=== PATIENT | male | born 1965 | race Caucasian/White ===

== ENCOUNTER 2018-01-07 23:18 | Emergency (ER) | payer BC, OTHER ==
[2018-01-08] MEDS ORDERED: HYDROMORPHONE HCL INJ/PF 2 MG/ML AMPULE IM ONE (00:45)
[2018-01-08] MEDS ORDERED: KETOROLAC TROMETHAMINE 60 MG/2 ML SDV IM ONE (00:45)
[2018-01-08] MEDS ORDERED: ACETAMINOPHEN 325 MG TABLET PO ONE (00:45)
[2018-01-08] MEDS ORDERED: LIDOCAINE 5% (700 MG) TRANSDERMAL ADH..PATCH TP ONE (00:45)
--- NOTE | 2018-01-08 00:46 | ER Document Report ---
ED General - General Chief Complaint: Back Pain Stated Complaint: BACK PAIN Time Seen by Provider: 01/08/18 00:04 Notes: Patient is a 52-year-old male with a past medical history of chronic low back pain and obesity who presents with acute worsening of his low back pain. Patient states that he was working on a drain prior to onset of his back pain. He states he was using a drain snake and "twisted wrong" which resulted in an immediate spasming of his left low back. He states that since that time he has had a severe, constant, throbbing, spasming pain to his left low back. He states any movement worsens the pain. He has not tried any to improve the pain. He notes that he has had similar back pain in the past although not generally to this degree of severity. He notes that the pain was so severe it felt like his legs would give out on him but he notes he is continues to be able to walk. No bowel or bladder incontinence. No urinary retention. No paresthesias or numbness in the lower extremities. No direct trauma to the low back. No fever or IV drug use. TRAVEL OUTSIDE OF THE [place] IN LAST 30 DAYS: No - Related Data Allergies/Adverse Reactions: No Known Allergies Allergy (Verified 03/08/13 09:01) Past Medical History - General Information source: Patient - Social History Smoking Status: Never Smoker Frequency of alcohol use: None Drug Abuse: None Lives with: Spouse/Significant other Family History: Reviewed & Not Pertinent, Other - Past Medical History Cardiac Medical History: Reports: Hx Hypertension Past Surgical History: Reports: Hx Orthopedic Surgery - foot surgery - Immunizations Hx Diphtheria, Pertussis, Tetanus Vaccination: No Review of Systems - Review of Systems Notes: Constitutional: Negative for fever. HENT: Negative for sore throat. Eyes: Negative for visual changes. Cardiovascular: Negative for chest pain. Respiratory: Negative for shortness of breath. Gastrointestinal: Negative for abdominal pain, vomiting or diarrhea. Genitourinary: Negative for dysuria. Musculoskeletal: Positive for low back pain Skin: Negative for rash. Neurological: Negative for headaches, weakness or numbness. 10 point ROS negative except as marked above and in HPI. Physical Exam - Vital signs Vitals: Temp Pulse BP Pulse Ox 98.4 F 68 183/95 H 99 01/08/18 00:04 01/08/18 00:04 01/08/18 00:04 01/08/18 00:04 Interpretation: Hypertensive Notes: PHYSICAL EXAMINATION: GENERAL: Appears to be in moderate pain HEAD: Atraumatic, normocephalic. EYES: Pupils equal round and reactive to light, extraocular movements intact, sclera anicteric, conjunctiva are normal. ENT: nares patent, oropharynx clear without exudates. Moist mucous membranes. NECK: Normal range of motion, supple without lymphadenopathy LUNGS: Breath sounds clear to auscultation bilaterally and equal. No wheezes rales or rhonchi. HEART: Regular rate and rhythm without murmurs ABDOMEN: Soft, nontender, normoactive bowel sounds. No guarding, no rebound. No masses appreciated. EXTREMITIES: Normal range of motion, no pitting or edema. No cyanosis. Back: No midline spinal tenderness, step-offs or deformities. Extreme pain on palpation of the paraspinous muscles to left low back NEUROLOGICAL: 5 out of 5 strength both distally and proximally bilateral lower extremities. 2+ patellar reflexes bilaterally. No clonus. Sensation grossly intact in the bilateral lower extremities. Patient is able to ambulate without difficulty. PSYCH: Normal mood, normal affect. SKIN: Warm, Dry, normal turgor, no rashes or lesions noted. Course - Re-evaluation Re-evalutation: 01/08/18 00:46 Presentation of a well appearing patient complaining of acute on chronic back pain. No rapid progression of symptoms, systemic symptoms including fevers, chills, weight loss, history of recent bacterial infection, bilateral symptoms, numbness, weakness, difficulty walking, urinary retention or bowel incontinence , personal history of cancer, immunosuppression, diabetes, known AAA, or history of IV drug use. Exam is without point tenderness over vertebral bodies , pulsatile abdominal mass, and patient has symmetric and intact lower extremity strength, sensation, and reflexes without clonus. 2+ symmetric medial malleolar and dorsalis pedis pulses Based on history and physical, I have a very low suspicion of a concerning etiology of pain including epidural compression syndrome, spinal infection, transverse myelitis, malignancy, abdominal aortic aneurysm, renal colic, acute lower extremity claudication, neurogenic claudication, ankylosing spondylitis, or other intra-abdominal process. Due to absence of concerning risk factors in history and physical as well as absence of rapidly progressive, severe, or bilateral symptoms, will defer imaging at this point. Plan to manage conservatively with outpatient analgesia, analgesia, and physical therapy. - Acetaminophen 650 q 4 + ibuprofen 600 q 6 - Continue normal daily activities as tolerated by pain - Provide with standard musculoskeletal back pain exercise instructions - Instruct to follow up with primary care provider if symptoms not improving - Provide careful return precautions and concerning symptoms to watch for. - Vital Signs Vital signs: Temp Pulse Resp BP Pulse Ox 97.6 F 63 165/96 H 95 01/08/18 02:00 01/08/18 02:00 01/08/18 02:00 01/08/18 02:00 Discharge - Discharge Clinical Impression: Essential hypertension Low back pain Qualifiers: Chronicity: acute Back pain laterality: left Sciatica presence: without sciatica Qualified Code(s): M54.5 - Low back pain Condition: Good Disposition: HOME, SELF-CARE Additional Instructions: You have been seen in the Emergency Department (ED) today for back pain. Your workup and exam have not shown any acute abnormalities and you are likely suffering from muscle strain or possible problems with your discs, but there is no treatment that will fix your symptoms at this time. For your pain: Take ibuprofen 600 mg and acetaminophen 1000 mg every 6 hours together as needed for pain. If this does not control your pain you may take 15 mg of oral morphine every 4 hours as needed. Please be very careful about using the oral morphine and only use this for severe pain. You should also purchase a local lidocaine cream such as "aspercreme with lidocaine" and use per bottle instructions to the affected area. Apply heat to the area as often as you are able. Continue to keep active and avoid prolonged periods of bed rest. Please follow up with your doctor as soon as possible regarding today's ED visit and your back pain. Return to the ED for worsening back pain, fever, weakness or numbness of either leg, or if you develop either (1) an inability to urinate or have bowel movements, or (2) loss of your ability to control your bathroom functions (if you start having "accidents"), or if you develop other new symptoms that concern you.concern you. Prescriptions: Morphine Sulfate [Morphine Ir 15 mg Tablet] 15 mg PO Q4HP PRN #12 tablet PRN Reason: Forms: Return to Work Referrals: GARY BARROW MD [Primary Care Provider] - Follow up in 3-5 days
[2018-01-08 02:03] VITALS: BP 165/96
== END 2018-01-08 02:11 | disposition home or self-care (01) ==
LOC: ER 23:18
DX: I10 Essential (primary) hypertension (principal); M54.5 Low back pain; G89.29 Other chronic pain
CPT/HCPCS: 99283; 96372; J1885; J1170

== ENCOUNTER 2020-01-03 16:55 | Inpatient (IN) | payer OTHER ==
--- NOTE | 2020-01-03 17:46 | ER Document Report ---
ED Medical Screen (RME) - General Chief Complaint: Back Pain Stated Complaint: BACK PAIN Time Seen by Provider: 01/03/20 17:36 Primary Care Provider: GARY BARROW MD [Primary Care Provider] - Follow up as needed Mode of Arrival: Ambulatory Information source: Patient Notes: 54-year-old male presented to ED for complaint of low back pain. He states he was seen here recently and referred to [facility] for surgery. [facility] surgery sent him to [facility] for an MRI without contrast. He states he went and had the MRI done today this morning. According to the patient and [facility] surgery called the and told her to get the patient back to the hospital to get an MRI with contrast. states that he she was to get him right back to the emergency room. states she thought he said something about a infection on the spine but she was not sure what he said. I have called [facility] surgery and talk to Dr. Will he states that he was told that the MRI without contrast showed either discitis or osteomyelitis in the spine and that he needed to have the MRI with contrast done tonight. Will order the blood work to get the approval for the MRI with contrast. I have greeted and performed a rapid initial assessment of this patient. A comprehensive ED assessment and evaluation of the patient, analysis of test results and completion of medical decision making process will be conducted by an additional ED providers. TRAVEL OUTSIDE OF THE [place] IN LAST 30 DAYS: No - Related Data Allergies/Adverse Reactions: No Known Allergies Allergy (Verified 03/08/13 09:01) Past Medical History - Past Medical History Cardiac Medical History: Reports: Hx Hypertension Renal/ Medical History: Denies: Hx Peritoneal Dialysis Past Surgical History: Reports: Hx Orthopedic Surgery - foot surgery - Immunizations Hx Diphtheria, Pertussis, Tetanus Vaccination: No Physical Exam - Vital signs Vitals: Temp Pulse Resp BP Pulse Ox 98.3 F 72 20 150/80 H 98 01/03/20 17:14 01/03/20 17:14 01/03/20 17:14 01/03/20 17:14 01/03/20 17:14 Course - Vital Signs Vital signs: Temp Pulse Resp BP Pulse Ox 98.3 F 72 20 150/80 H 98 01/03/20 17:14 01/03/20 17:14 01/03/20 17:14 01/03/20 17:14 01/03/20 17:14 Doctor's Discharge - Discharge Referrals: GARY BARROW MD [Primary Care Provider] - Follow up as needed
[2020-01-03 18:54] LABS: ABSOLUTE EOSINOPHILS # (AUTO) 0.1 10^3/uL (0.0-0.6); ABSOLUTE LYMPHOCYTES (AUTO) 2.6 10^3/uL (0.5-4.7); ABSOLUTE NEUT (AUTO) 4.2 10^3/uL (1.7-8.2); BASOPHILS % (AUTO) 0.2 % (0-2); EOSINOPHILS % (AUTO) 1.6 % (0-6); HEMATOCRIT 49.7 % (37.9-51.0); HEMOGLOBIN 17.3 g/dL (13.5-17.0); LYMPHOCYTES % (AUTO) 32.3 % (13-45); MEAN CORPUSCULAR HEMOGLOBIN 33.1 pg (27.0-33.4); MEAN CORPUSCULAR HGB CONC 34.9 g/dL (32.0-36.0); MEAN CORPUSCULAR VOLUME 95 fl (80-97); MONOCYTES % (AUTO) 12.2 % (3-13); PLATELET COUNT 183 10^3/uL (150-450); RED BLOOD COUNT 5.23 10^6/uL (4.35-5.55); RED CELL DISTRIBUTION WIDTH 13.6 % (11.5-14.0); SEGMENTED NEUTROPHILS % (AUTO) 53.7 % (42-78); TOTAL CELLS COUNTED % (AUTO) 100 %; WHITE BLOOD COUNT 7.9 10^3/uL (4.0-10.5)
[2020-01-03 19:10] LABS: ALBUMIN 4.3 g/dL (3.5-5.0); ALKALINE PHOSPHATASE 66 U/L (38-126); ANION GAP 7 (5-19); ASPARTATE AMINO TRANSFERASE 26 U/L (17-59); BILIRUBIN,DIRECT 0.3 mg/dL (0.0-0.4); BILIRUBIN,TOTAL 0.6 mg/dL (0.2-1.3); BLOOD UREA NITROGEN 22 mg/dL (7-20); CALCIUM 9.1 mg/dL (8.4-10.2); CARBON DIOXIDE 28 mmol/L (22-30); CHLORIDE 105 mmol/L (98-107); GLUCOSE 79 mg/dL (75-110); POTASSIUM 4.1 mmol/L (3.6-5.0); TOTAL PROTEIN 7.5 g/dL (6.3-8.2)
--- NOTE | 2020-01-03 22:05 | RADIOLOGY REPORT (SQ) ---
EXAM DESCRIPTION: MRI of the lumbar spine without and with gadolinium CLINICAL HISTORY: 54 years Male; MRI this morning possible discitis or osteomyelitis TECHNIQUE: MRI lumbar spine with and without contrast using intravenous contrast. COMPARISON: None. FINDINGS: For the purpose of this dictation five nonrib-bearing lumbar vertebral bodies are assumed. The S1 segment is transitional and there is a small disc at S1-2. Bone marrow edema is identified involving the inferior endplate of L1 the entire L2 and L3 vertebral body. There appears to be irregularity and fragmentation of the disc level at L2-3. The conus terminates at the L2 vertebral body level. At L1-2 there is 3 mm of retrolisthesis and at L2-3 there is 4 mm of retrolisthesis. Following the administration of gadolinium there is abnormal enhancement of the L2 and L3 vertebral bodies and there appears to be unenhancing fluid with peripheral enhancement in the disc level. No definitive extension into the posterior elements at this level. There is subtle enhancement of the anterior inferior endplate of L1. Abnormal soft tissue is seen surrounding the L2-3 level extending into the paraspinal muscles consistent with phlegmon. No abscess. Subtle enhancement is also seen along the posterior longitudinal ligament at the L2-3 level. Overall the findings are consistent with discitis and osteomyelitis at L2-3 with possible very early changes of osteomyelitis at L1. Bone marrow edema is also noted unilaterally in the pars interarticularis on the left at L5. This appears to be related to degenerative change. L1-2: Posterior broad-based disc bulge is seen which results in minimal encroachment into the spinal canal. There is bilateral facet arthropathy. L2-3: Retrolisthesis is noted and there is facet arthropathy as well as mild elevation the posterior longitudinal ligament. This results in moderate to severe spinal stenosis and foraminal narrowing right greater than left. L3-4: Facet arthropathy and hypertrophy ligamentum flavum at is present with a posterior broad-based disc bulge. This results in moderate spinal stenosis and foraminal narrowing. L4-5: Severe degenerative facet arthropathy is present with a symmetric disc bulge. There is mild narrowing of the central spinal canal and moderate foraminal narrowing L5-S1: Severe degenerative facet arthropathy results in mild foraminal narrowing. IMPRESSION: 1. Findings consistent with osteomyelitis and discitis at the L2-3 level. Possible early changes of osteomyelitis of the anterior inferior endplate at L1. There is associated mild paraspinal phlegmon. No definitive extension into the epidural space but there is enhancement of the longitudinal ligament posteriorly. There is spinal stenosis at this level. 2. Multilevel degenerative disc disease throughout the lumbar spine resulting in foraminal narrowing and spinal stenosis. THIS REPORT CONTAINS FINDINGS THAT MAY BE CRITICAL TO PATIENT CARE: The findings were verbally discussed via telephone conference with Dr. Harry Enrique MD at 9:13 PM PROCESSING ENGINEER on 01/03/2020 .
[2020-01-03] MEDS ORDERED: VANCOMYCIN HCL INJ 1000 MG VIAL IV ONE (22:52)
[2020-01-03] MEDS ORDERED: KETOROLAC TROMETHAMINE INJ/PF 30 MG/1 ML SDV IV ONE (23:01)
--- NOTE | 2020-01-03 23:11 | ER Document Report ---
Entered by TANIYA MEADE SCRIBE 01/03/20 2133 Acting as scribe for:CANDACE CARLOS IV, MD ED General - General Chief Complaint: Back Pain Stated Complaint: BACK PAIN Time Seen by Provider: 01/03/20 17:36 Primary Care Provider: GARY BARROW MD [Primary Care Provider] - Follow up as needed Mode of Arrival: Ambulatory Information source: Patient, Outside Facility Records Notes: This 54-year-old male patient presents to the emergency department today for a lumbar spine MRI with contrast. Patient states that he had an outpatient lumbar MRI today without contrast that was read as discitis versus osteomyelitis. Patient is followed by Dr. Dangelo at [facility] for surgery and he was given these results and he contacted the patient telling then to come to the emergency department for a contrasted MRI. Patient states he has had chronic low back pain for years but for the last 6 months or so "the pain has been different". Patient denies any bladder/bowel incontinence or saddle anesthesia. TRAVEL OUTSIDE OF THE [place] 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 Lives with: Spouse/Significant other Family History: Reviewed & Not Pertinent, Other Patient has suicidal ideation: No Patient has homicidal ideation: No - Past Medical History Cardiac Medical History: Reports: Hx Hypertension Musculoskeletal Medical History: Reports Other - chronic back pain Past Surgical History: Reports: Hx Orthopedic Surgery - foot surgery - Immunizations Hx Diphtheria, Pertussis, Tetanus Vaccination: No Review of Systems - Review of Systems Constitutional: No symptoms reported EENT: No symptoms reported Cardiovascular: No symptoms reported Respiratory: No symptoms reported Gastrointestinal: No symptoms reported Genitourinary: No symptoms reported Male Genitourinary: No symptoms reported Musculoskeletal: See HPI, Back pain Skin: No symptoms reported Hematologic/Lymphatic: No symptoms reported Neurological/Psychological: No symptoms reported -: Yes All other systems reviewed and negative Physical Exam - Vital signs Vitals: Temp Pulse Resp BP Pulse Ox 98.3 F 72 20 150/80 H 98 01/03/20 17:14 01/03/20 17:14 01/03/20 17:14 01/03/20 17:14 01/03/20 17:14 - Notes Notes: Physical Exam: General: Alert, appears well. HEENT: Normocephalic. Atraumatic. PERRL. Extraocular movements intact. Oropharynx clear. Neck: Supple. Non-tender. Respiratory: No respiratory distress. Clear and equal breath sounds bilaterally. Cardiovascular: Regular rate and rhythm. Abdominal: Normal Inspection. Non-tender. No distension. Normal Bowel Sounds. Back: Midline upper lumbar tenderness to palpation. No step-off or deformities. No crepitus. Extremities: Moves all four extremities. Upper extremities: Normal inspection. Normal ROM. Lower extremities: Normal inspection. No edema. Normal ROM. Neurological: Normal cognition. AAOx4. Normal speech. Patellar DTRs are 2+ bilaterally. Normal sensation to lower extremities. Psychological: Normal affect. Normal Mood. Skin: Warm. Dry. Normal color. Course - Re-evaluation Re-evalutation: 01/03/20 23:23 Results of ED MSE discussed with patient and patient's significant other. Recommendation for admission discussed with patient and patient's significant other. All questions were answered. - Vital Signs Vital signs: Temp Pulse Resp BP Pulse Ox 97.8 F 69 15 180/102 H 98 01/03/20 22:42 01/03/20 22:42 01/03/20 22:42 01/03/20 22:42 01/03/20 22:42 - Laboratory Result Diagrams: 01/03/20 18:15 01/03/20 18:15 Laboratory results interpreted by me: 01/03/20 01/03/20 18:15 18:15 Hgb 17.3 H BUN 22 H - Diagnostic Test Radiology reviewed: Reports reviewed - Consults dr dangelo, [facility] / [facility] Time consulted: 22:40 - recommended admission to hospitalist service for iv anti bioticx Reason for consultation: 01/03/20 23:24 vertebral osteomyelitis, discitis dr. zurita, hospitalist Time consulted: 23:17 Reason for consultation: 01/03/20 23:26 vertebral osteomyelitis, discitis Consulted provider: will come to ER Discharge - Discharge Clinical Impression: Vertebral osteomyelitis Condition: Good Disposition: ADMITTED INPATIENT Admitting Provider: Elie (Hospitalist) Unit Admitted: Medical Floor Referrals: GARY BARROW MD [Primary Care Provider] - Follow up as needed I personally performed the services described in the documentation, reviewed and edited the documentation which was dictated to the scribe in my presence, and it accurately records my words and actions.
[2020-01-04] MEDS ORDERED: PROMETHAZINE HCL INJ 25 MG/1 ML VIAL IV PRN (01:21)
[2020-01-04] MEDS ORDERED: MAGNESIUM HYDROXIDE SUSP 30 ML UDCUP PO PRN (01:21)
[2020-01-04] MEDS ORDERED: MAG HYDROX/AL HYDROX/SIMETH SUSP 30 ML UDCUP PO PRN (01:21)
[2020-01-04] MEDS ORDERED: ACETAMINOPHEN 325 MG TABLET PO PRN (01:21)
[2020-01-04] MEDS ORDERED: METOPROLOL SUCCINATE 50 MG TAB.SR.24H PO ONE (01:28)
[2020-01-04] MEDS ORDERED: HYDRALAZINE HCL INJ/PF 20 MG/1 ML SDV IV PRN (01:33)
[2020-01-04] MEDS ORDERED: VANCOMYCIN HCL 0 MG in DEXTROSE 5%-WATER 250 ML IV NR (01:45)
--- NOTE | 2020-01-04 01:46 | PDOC H&P ---
History of Present Illness Admission Date/PCP: 01/03/20 23:55 GARY BARROW MD Patient complains of: Back pain with abnormal MRI History of Present Illness: OTIS KAUR JR is a 54 year old male with a past medical history of hypertension, obesity and back pain. He has had chronic back pain. Several months ago he received an injection in his hip and facet joint. It was felt that he was a candidate for nerve block and an MRI obtained today revealed osteo myelitis with discitis. The patient has had pain and reports that the pain currently is not more significant than it has been. He denies fever or chills. He denies any dysfunctional bladder or bowel or lower extremity function. The patient is referred to the hospital service for initiation of IV vancomycin therapy, placement of a PICC line and cultures to try and identify the bacteria present. Past Medical History Cardiac Medical History: Reports: Hypertension Pulmonary Medical History: Reports: Sleep Apnea GI Medical History: Denies: Cirrhosis, Diverticulitis, Peptic Ulcer Disease, Ulcerative Colitis Musculoskeltal Medical History: Reports: Other - chronic back pain Denies: None, Arthritis, Fibromyalgia, Gout Skin Medical History: Denies: Eczema, Psoriasis, Other Psychiatric Medical History: Denies: Alcohol Dependency, Depression Traumatic Medical History: Reports: None Hematology: Denies: Anemia Infectious Medical History: Reports: None Past Surgical History Past Surgical History: Reports: Appendectomy, Orthopedic Surgery - foot surgery Social History Information Source: Patient Lives with: Spouse/Significant other Smoking Status: Former Smoker Electronic Cigarette use?: No Frequency of Alcohol Use: Occasional Hx Recreational Drug Use: No Hx Prescription Drug Abuse: No - Advance Directive Resuscitation Status: Full Code Surrogate healthcare decision maker:: The patient's would be the designated decision maker. Family History Family History: Reviewed & Not Pertinent Parental Family History Reviewed: Yes Children Family History Reviewed: Yes Sibling(s) Family History Reviewed.: Yes Medication/Allergy Home Medications: Amlodipine Besylate [Norvasc 10 mg Tablet] 10 mg PO QHS 03/08/13 Losartan Potassium [Cozaar 100 mg Tablet] 100 mg PO QHS 03/08/13 Metoprolol Succinate [Toprol Xl 50 mg Tab.sr] 50 mg PO DAILY 03/08/13 Lorazepam [Ativan 1 mg Tablet] 3 mg PO Q12HP PRN 03/12/13 Allergies/Adverse Reactions: No Known Allergies Allergy (Verified 03/08/13 09:01) Review of Systems Constitutional: ABSENT: anorexia, chills, headache(s), night sweats Eyes: ABSENT: visual disturbances Ears: ABSENT: hearing changes Nose, Mouth, and Throat: ABSENT: mouth pain, sore throat Cardiovascular: ABSENT: chest pain, edema, palpitations Respiratory: ABSENT: cough, dyspnea, sputum Gastrointestinal: PRESENT: heartburn. ABSENT: abdominal pain, constipation, diarrhea, nausea, vomiting Genitourinary: PRESENT: nocturia. ABSENT: dysuria, hematuria Integumentary: ABSENT: erythema, pruritus, wounds Neurological: ABSENT: abnormal gait, abnormal movements, abnormal speech, confusion, numbness, paresthesias, syncope, tingling, tremor(s), weakness Psychiatric: ABSENT: anxiety, depression, hallucinations Endocrine: ABSENT: cold intolerance, heat intolerance, polydipsia, polyphagia, polyuria Hematologic/Lymphatic: ABSENT: easy bleeding, easy bruising Allergic/Immunologic: PRESENT: seasonal rhinorrhea Physical Exam Vital Signs: Temp Pulse Resp BP Pulse Ox 97.8 F 69 15 180/102 H 98 01/03/20 22:42 01/03/20 22:42 01/03/20 22:42 01/03/20 22:42 01/03/20 22:42 Intake & Output 01/02/20 01/03/20 01/04/20 06:59 06:59 06:59 Weight 144.6 kg General appearance: PRESENT: cooperative, mild distress, morbidly obese, well- developed Head exam: PRESENT: atraumatic, normocephalic Eye exam: PRESENT: conjunctiva pink, EOMI, PERRLA. ABSENT: scleral icterus Ear exam: PRESENT: normal external ear exam. ABSENT: bleeding, drainage Mouth exam: PRESENT: moist, tongue midline Teeth exam: PRESENT: poor dentation Neck exam: PRESENT: full ROM. ABSENT: carotid bruit, JVD, lymphadenopathy Respiratory exam: PRESENT: clear to auscultation lu, symmetrical, unlabored. ABSENT: accessory muscle use, prolonged expiratory phas, rales, rhonchi, tachypnea, wheezes Cardiovascular exam: PRESENT: RRR, +S1, +S2. ABSENT: systolic murmur GI/Abdominal exam: PRESENT: normal bowel sounds, soft, other - Protuberant abdomen. ABSENT: guarding, mass, tenderness Rectal exam: PRESENT: deferred Gentrourinary exam: ABSENT: indwelling catheter Extremities exam: ABSENT: calf tenderness, pedal edema Musculoskeletal exam: PRESENT: ambulatory, full ROM. ABSENT: deformity Neurological exam: PRESENT: alert, awake, oriented to person, oriented to place, oriented to time, oriented to situation, CN II-XII grossly intact. ABSENT: motor sensory deficit Psychiatric exam: PRESENT: appropriate affect, normal mood. ABSENT: agitated, anxious Focused psych exam: ABSENT: delusional, flight of ideas, pressured speech, restlessness Skin exam: PRESENT: dry, normal color, warm. ABSENT: rash Results Laboratory Results: 01/03/20 18:15 01/03/20 18:15 01/03/20 01/03/20 01/03/20 18:15 18:15 18:15 WBC 7.9 RBC 5.23 Hgb 17.3 H Hct 49.7 MCV 95 MCH 33.1 MCHC 34.9 RDW 13.6 Plt Count 183 Seg Neutrophils % 53.7 Sodium 140.4 Potassium 4.1 Chloride 105 Carbon Dioxide 28 Anion Gap 7 BUN 22 H Creatinine 1.09 Est GFR ( Amer) > 60 Glucose 79 Calcium 9.1 Total Bilirubin 0.6 AST 26 Alkaline Phosphatase 66 C-Reactive Protein < 5.0 Total Protein 7.5 Albumin 4.3 Impressions: Lumbar Spine MRI 01/03/20 17:47 IMPRESSION: 1. Findings consistent with osteomyelitis and discitis at the L2-3 level. Possible early changes of osteomyelitis of the anterior inferior endplate at L1. There is associated mild paraspinal phlegmon. No definitive extension into the epidural space but there is enhancement of the longitudinal ligament posteriorly. There is spinal stenosis at this level. 2. Multilevel degenerative disc disease throughout the lumbar spine resulting in foraminal narrowing and spinal stenosis. THIS REPORT CONTAINS FINDINGS THAT MAY BE CRITICAL TO PATIENT CARE: The findings were verbally discussed via telephone conference with Dr. Harry Enrique MD at 9:13 PM TALK SHOW HOST on 01/03/2020 . Assessment and Plan - Diagnosis (1) Vertebral osteomyelitis Is this a current diagnosis for this admission?: Yes Plan: 01/04/2020 Such as the nerve block and the patient was told to come to the emergency department immediately for the abnormal MRI. The MRI shows discitis/osteomyelitis at the L1-L3 levels. This could have been the initial cause of his pain or possibly bacteria introduced via the injections. Gram- positive organisms are by far the most common pathogens. There is a phlegmon associated with this infection. Fortunately there is absolutely no evidence of neurologic compromise in the pelvis and lower extremities. The patient will be started on IV vancomycin. Blood cultures are pending. It is certainly possible that this is a very acute onset presentation as the white blood cell count, sed rate and C-reactive protein are all in the normal range. The patient will require long-term antibiotic therapy. Typically is 6 weeks from the time of the first negative blood culture. We are awaiting results of the set of blood cultures drawn on admission. (2) Hypertension Qualifiers: Hypertension type: essential hypertension Qualified Code(s): I10 - Essential (primary) hypertension Is this a current diagnosis for this admission?: Yes Plan: 01/04/2020 The patient reports that he has very difficult to control hypertension. He is on a valsartan/amlodipine combination tablet. He is also on metoprolol. We will continue the metoprolol and I have ordered valsartan and amlodipine separ ately. Once the medication reconciliation is performed we can ensure that he is on the correct doses of medication. For now everything is ordered separately. His blood pressure at one point was 180/102. I have also ordered as needed hydralazine. (3) Back pain Qualifiers: Back pain location: low back pain Chronicity: chronic Back pain laterality: midline Sciatica presence: without sciatica Qualified Code(s): M54.5 - Low back pain; G89.29 - Other chronic pain Is this a current diagnosis for this admission?: Yes Plan: 01/04/2020 The patient has had low back pain for many months. There was some retrolisthesis noted. This could have been causing the pain prior to the osteomyelitis. In addition there are some arthritic changes in disc protrusion. It is likely combination of several issues. We will provide analgesia and supportive care. (4) Morbid obesity with BMI of 40.0-44.9, adult Is this a current diagnosis for this admission?: Yes Plan: 01/04/2020 The patient's BMI is 42.4. He did inform this provider that he is already lost 60 pounds. He stopped smoking a year and a half ago. He is making a concerted effort to improve his health. Encouraged ongoing diet for weight loss. (5) Anxiety Is this a current diagnosis for this admission?: Yes Plan: 01/04/2020 The patient reports anxiety especially at night when going to sleep. He does have Lorazepam tablets available. We will continue the same. - Time Time Spent with patient: 35 or more minutes Medications reviewed and adjusted accordingly: Yes Anticipated discharge: Home with Homehealth, Other - Most likely home infusion as well. - Inpatient Certification Based on my medical assessment, after consideration of the patient's comorbidities, presenting symptoms, or acuity I expect that the services needed warrant INPATIENT care.: Yes I certify that my determination is in accordance with my understanding of Medicare's requirements for reasonable and necessary INPATIENT services [42 CFR 412.3e].: Yes Medical Necessity: Failure to Improve With Outpatient Therapy, Need for Pain Control, Need for IV Antibiotics, Risk of Complication if Not Cared For in Hospital Post Hospital Care: D/C Vice President Of Academic Affairs Documentation
[2020-01-04] MEDS ORDERED: VALSARTAN 160 MG TABLET PO ONE (02:30)
[2020-01-04] MEDS ORDERED: LORAZEPAM 1 MG TABLET PO ONE (02:30)
[2020-01-04] MEDS ORDERED: AMLODIPINE BESYLATE 10 MG TABLET PO ONE (02:30)
--- NOTE | 2020-01-04 03:47 | ADVANCED CARE ---
- Diagnosis (1) Vertebral osteomyelitis Diagnosis Current: Yes (2) Back pain Diagnosis Current: Yes (3) Hypertension Diagnosis Current: Yes (4) Morbid obesity with BMI of 40.0-44.9, adult Diagnosis Current: Yes Attendance: Discussion was held at the bedside with the patient Resuscitation Status: Full Code Discussion: When discussing the CODE STATUS the patient intimated that if his were present he may have considered a different decision. Reviewed the fact that this is a subject that they should clearly talk about. He has underlying hypertension and an infection in the lower spine. He clearly reported that he would want some restrictions on care after a catastrophic illness such as no long-term senior care placement, no tracheostomy and no feeding tube. I reviewed the fact that there was a blank healthcare proxy form in his admissions packet. I strongly encouraged him to review it and possibly complete it when his is present. Care Planning Goals: Review a living well/healthcare proxy document with his and completes the document for himself and encourage his to complete 1 as well. Document(s) Completed: None Time Spent: 20 minutes
[2020-01-04] MEDS: PANTOPRAZOLE SODIUM 40 MG TABLET.DR PO SCH (06:08)
[2020-01-04] MEDS: HEPARIN SOD (PORCINE) 5,000 UNIT/ML 1 ML VIAL SUBCUT SCH ×3 (06:08→23:32)
[2020-01-04] MEDS: VALSARTAN 160 MG TABLET PO SCH (10:00)
[2020-01-04] MEDS: METOPROLOL SUCCINATE 50 MG TAB.SR.24H PO SCH (10:00)
[2020-01-04] MEDS: VANCOMYCIN HCL 1,250 MG in DEXTROSE 5%-WATER 250 ML IV SCH ×2 (15:13→22:55)
--- NOTE | 2020-01-04 18:22 | PDOC PROGRESS REPORT ---
Subjective Progress Note for:: 01/04/20 Subjective:: No adverse events overnight. He said his back does not feel any worse than normal. 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 Reason For Visit: LUMBAR DISCITIS/OSTEOMYELITIS Physical Exam Vital Signs: Temp Pulse Resp BP Pulse Ox 98.1 F 53 L 18 178/86 H 98 01/04/20 13:00 01/04/20 13:00 01/04/20 13:00 01/04/20 13:00 01/04/20 13:00 Intake & Output 01/03/20 01/04/20 01/05/20 06:59 06:59 07:59 Weight 145.7 kg General appearance: PRESENT: no acute distress, cooperative, disheveled, morbidly obese Respiratory exam: PRESENT: clear to auscultation lu, symmetrical, unlabored. ABSENT: accessory muscle use, crackles, prolonged expiratory phas, retraction, rhonchi, tachypnea, wheezes Cardiovascular exam: PRESENT: RRR, +S1, +S2 Pulses: PRESENT: normal carotid pulses Vascular exam: PRESENT: normal capillary refill GI/Abdominal exam: PRESENT: normal bowel sounds, soft. ABSENT: distended, guarding, rebound, tenderness Extremities exam: ABSENT: clubbing, pedal edema Musculoskeletal exam: PRESENT: normal inspection. ABSENT: deformity Neurological exam: PRESENT: alert, awake, oriented to person, oriented to place, oriented to situation Psychiatric exam: PRESENT: appropriate affect, normal mood Skin exam: PRESENT: dry, warm Results Laboratory Results: 01/03/20 18:15 01/03/20 18:15 01/03/20 01/03/20 01/03/20 18:15 18:15 18:15 WBC 7.9 RBC 5.23 Hgb 17.3 H Hct 49.7 MCV 95 MCH 33.1 MCHC 34.9 RDW 13.6 Plt Count 183 Seg Neutrophils % 53.7 Sodium 140.4 Potassium 4.1 Chloride 105 Carbon Dioxide 28 Anion Gap 7 BUN 22 H Creatinine 1.09 Est GFR ( Amer) > 60 Glucose 79 Calcium 9.1 Total Bilirubin 0.6 AST 26 Alkaline Phosphatase 66 C-Reactive Protein < 5.0 Total Protein 7.5 Albumin 4.3 Impressions: Lumbar Spine MRI 01/03/20 17:47 IMPRESSION: 1. Findings consistent with osteomyelitis and discitis at the L2-3 level. Possible early changes of osteomyelitis of the anterior inferior endplate at L1. There is associated mild paraspinal phlegmon. No definitive extension into the epidural space but there is enhancement of the longitudinal ligament posteriorly. There is spinal stenosis at this level. 2. Multilevel degenerative disc disease throughout the lumbar spine resulting in foraminal narrowing and spinal stenosis. THIS REPORT CONTAINS FINDINGS THAT MAY BE CRITICAL TO PATIENT CARE: The findings were verbally discussed via telephone conference with Dr. Harry Enrique MD at 9:13 PM OSD CLERK on 01/03/2020 . Assessment and Plan - Diagnosis (1) Hypertension Qualifiers: Hypertension type: essential hypertension Qualified Code(s): I10 - Essential (primary) hypertension Is this a current diagnosis for this admission?: Yes Plan: We have restarted his home medications and will see what effect they have before we alter his regimen. (2) Morbid obesity with BMI of 40.0-44.9, adult Is this a current diagnosis for this admission?: Yes Plan: Strongly encouraged lifestyle modification (3) Vertebral osteomyelitis Is this a current diagnosis for this admission?: Yes Plan: We are awaiting a PICC line. He will likely need several weeks of IV antibiotics. Cultures have been obtained. - Time Time Spent with patient: 15-24 minutes
[2020-01-04] MEDS ORDERED: LOSARTAN POTASSIUM 50 MG TABLET PO SCH (22:00)
[2020-01-04] MEDS: AMLODIPINE BESYLATE 10 MG TABLET PO SCH (22:54)
[2020-01-04] MEDS: LORAZEPAM 1 MG TABLET PO SCH (22:55)
[2020-01-04] MEDS: KETOROLAC TROMETHAMINE INJ/PF 30 MG/1 ML SDV IV PRN (22:59)
[2020-01-05 05:50] LABS: VANCOMYCIN,TROUGH 15.5 ug/mL (5.0-20.0)
[2020-01-05] MEDS: VANCOMYCIN HCL 1,250 MG in DEXTROSE 5%-WATER 250 ML IV SCH ×3 (06:56→22:41)
[2020-01-05] MEDS: HEPARIN SOD (PORCINE) 5,000 UNIT/ML 1 ML VIAL SUBCUT SCH ×3 (06:57→22:42)
[2020-01-05] MEDS: PANTOPRAZOLE SODIUM 40 MG TABLET.DR PO SCH (06:57)
[2020-01-05] MEDS: KETOROLAC TROMETHAMINE INJ/PF 30 MG/1 ML SDV IV PRN ×3 (08:31→20:56)
[2020-01-05] MEDS: VALSARTAN 160 MG TABLET PO SCH (10:06)
[2020-01-05] MEDS: METOPROLOL SUCCINATE 50 MG TAB.SR.24H PO SCH (10:06)
--- NOTE | 2020-01-05 18:16 | PDOC PROGRESS REPORT ---
Subjective Progress Note for:: 01/05/20 Subjective:: No adverse events overnight. No new complaints. Vital signs been stable. Awaiting placement of his PICC line. Blood pressures remain elevated despite being on his home medications. Reason For Visit: LUMBAR DISCITIS/OSTEOMYELITIS Physical Exam Vital Signs: Temp Pulse Resp BP Pulse Ox 97.4 F 51 L 12 172/83 H 97 01/05/20 16:00 01/05/20 16:00 01/05/20 16:00 01/05/20 16:00 01/05/20 16:00 Intake & Output 01/04/20 01/05/20 01/06/20 05:59 06:59 06:59 Intake Total 1220 Balance 1220 Weight General appearance: PRESENT: no acute distress, cooperative, disheveled, morbidly obese Respiratory exam: PRESENT: clear to auscultation lu, symmetrical, unlabored. ABSENT: accessory muscle use, crackles, prolonged expiratory phas, retraction, rhonchi, tachypnea, wheezes Cardiovascular exam: PRESENT: RRR, +S1, +S2 Pulses: PRESENT: normal carotid pulses Vascular exam: PRESENT: normal capillary refill GI/Abdominal exam: PRESENT: normal bowel sounds, soft. ABSENT: distended, guarding, rebound, tenderness Extremities exam: ABSENT: clubbing, pedal edema Musculoskeletal exam: PRESENT: normal inspection. ABSENT: deformity Neurological exam: PRESENT: alert, awake, oriented to person, oriented to place, oriented to situation Psychiatric exam: PRESENT: appropriate affect, normal mood Skin exam: PRESENT: dry, warm Results Laboratory Results: 01/03/20 18:15 01/03/20 18:15 Impressions: Lumbar Spine MRI 01/03/20 17:47 IMPRESSION: 1. Findings consistent with osteomyelitis and discitis at the L2-3 level. Possible early changes of osteomyelitis of the anterior inferior endplate at L1. There is associated mild paraspinal phlegmon. No definitive extension into the epidural space but there is enhancement of the longitudinal ligament posteriorly. There is spinal stenosis at this level. 2. Multilevel degenerative disc disease throughout the lumbar spine resulting in foraminal narrowing and spinal stenosis. THIS REPORT CONTAINS FINDINGS THAT MAY BE CRITICAL TO PATIENT CARE: The findings were verbally discussed via telephone conference with Dr. Harry Enrique MD at 9:13 PM SALES PRODUCT MANAGER on 01/03/2020 . Assessment and Plan - Diagnosis (1) Hypertension Qualifiers: Hypertension type: essential hypertension Qualified Code(s): I10 - Essential (primary) hypertension Is this a current diagnosis for this admission?: Yes Plan: I do not think we can get any improvement by going up on his current medications, so I added chlorthalidone. (2) Morbid obesity with BMI of 40.0-44.9, adult Is this a current diagnosis for this admission?: Yes Plan: Strongly encouraged lifestyle modification (3) Vertebral osteomyelitis Is this a current diagnosis for this admission?: Yes Plan: Apparently up to 20% of people with vertebral osteomyelitis and discitis can have negative blood markers of inflammation. He is awaiting a PICC line and will set up home antibiotics. - Time Time Spent with patient: 15-24 minutes
[2020-01-05] MEDS: AMLODIPINE BESYLATE 10 MG TABLET PO SCH (22:42)
[2020-01-05] MEDS: LORAZEPAM 1 MG TABLET PO SCH (22:42)
[2020-01-06] MEDS: VANCOMYCIN HCL 1,250 MG in DEXTROSE 5%-WATER 250 ML IV SCH ×3 (06:43→21:09)
[2020-01-06] MEDS: HEPARIN SOD (PORCINE) 5,000 UNIT/ML 1 ML VIAL SUBCUT SCH ×3 (06:44→21:10)
[2020-01-06] MEDS: PANTOPRAZOLE SODIUM 40 MG TABLET.DR PO SCH (06:44)
[2020-01-06] MEDS: VALSARTAN 160 MG TABLET PO SCH (09:33)
[2020-01-06] MEDS: CHLORTHALIDONE 25 MG TABLET PO SCH (09:34)
[2020-01-06] MEDS: METOPROLOL SUCCINATE 50 MG TAB.SR.24H PO SCH (09:34)
--- NOTE | 2020-01-06 10:47 | RADIOLOGY REPORT (SQ) ---
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 FLUOROSCOPY TIME: 25 SECONDS OF FLUOROSCOPY WAS USED. 1 images saved to PACS. TECHNIQUE: Fluoroscopic and ultrasound guided PICC placement. LIMITATIONS: None. PROCEDURE: After written consent and assessment were obtained, the patient was brought into the fluo roscopy room and placed supine on the table. Ultrasound evaluation of potential access sites were per formed. After successfully identifying a patent left basilic vein, the left arm was prepped and drape d in a sterile fashion along with the ultrasound probe. The entry site was anesthetized with 1% lidoc aga. A 21 gauge 7 cm needle was advanced through the skin and into the basilic vein under live ultra sound guidance. An ultrasound image was saved to PACS confirming access site. A .018 guide wire was then inserted through the needle and into the venous system. The needle was then removed and an 11 b lade scalpel was used to make a 1cm skin incision. A 5 fr peel-away sheath was advanced over the wir e and into the venous system. A measurement was then made using the existing wire and live fluoroscop ic guidance. The wire was then removed and trimmed. The PICC was advanced through the peel-away sheat h and into the venous system. The peel-away sheath was removed and the catheter was adhered to the pa tients arm with a stat lock. The catheter was then aspirated and flushed and a sterile bandage was pl aced over the access site. A fluoroscopic spot image was saved to PACS confirming the catheter tip w ithin the superior vena cava. IMPRESSION: SUCCESSFUL PLACEMENT OF A 5 FR DUAL LUMEN 45 CM PICC IN THE LEFT BASILIC VEIN. COMMENT: Patient medication list reviewed: Yes- Quality ID# 130:Eligible professional attests to doc umenting in the medical record they obtained, updated, or reviewed the patient's current medications. . Quality ID 145: Final reports for procedures using fluoroscopy that document radiation exposure ana jaron, or exposure time and number of fluorographic images (if radiation exposure indices are not avail able) Quality ID #76: The patient was prepped and draped using maximum sterile barrier technique including cap, mask, sterile gown, sterile gloves, a large sterile sheet, hand hygiene, and 2% Chlorhexidine fo r cutaneous antisepsis. When ultrasound is used, sterile ultrasound techniques are followed requiring sterile gel and sterile probes. TECHNICAL DOCUMENTATION: JOB ID: [id number] 2010 [employer]- All Rights Reserved rev-03/16 Reading location - IP/workstation name: [email or web address] [id number]
--- NOTE | 2020-01-06 10:47 | RADIOLOGY REPORT (SQ) ---
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 FLUOROSCOPY TIME: 25 SECONDS OF FLUOROSCOPY WAS USED. 1 images saved to PACS. TECHNIQUE: Fluoroscopic and ultrasound guided PICC placement. LIMITATIONS: None. PROCEDURE: After written consent and assessment were obtained, the patient was brought into the fluo roscopy room and placed supine on the table. Ultrasound evaluation of potential access sites were per formed. After successfully identifying a patent left basilic vein, the left arm was prepped and drape d in a sterile fashion along with the ultrasound probe. The entry site was anesthetized with 1% lidoc aga. A 21 gauge 7 cm needle was advanced through the skin and into the basilic vein under live ultra sound guidance. An ultrasound image was saved to PACS confirming access site. A .018 guide wire was then inserted through the needle and into the venous system. The needle was then removed and an 11 b lade scalpel was used to make a 1cm skin incision. A 5 fr peel-away sheath was advanced over the wir e and into the venous system. A measurement was then made using the existing wire and live fluoroscop ic guidance. The wire was then removed and trimmed. The PICC was advanced through the peel-away sheat h and into the venous system. The peel-away sheath was removed and the catheter was adhered to the pa tients arm with a stat lock. The catheter was then aspirated and flushed and a sterile bandage was pl aced over the access site. A fluoroscopic spot image was saved to PACS confirming the catheter tip w ithin the superior vena cava. IMPRESSION: SUCCESSFUL PLACEMENT OF A 5 FR DUAL LUMEN 45 CM PICC IN THE LEFT BASILIC VEIN. COMMENT: Patient medication list reviewed: Yes- Quality ID# 130:Eligible professional attests to doc umenting in the medical record they obtained, updated, or reviewed the patient's current medications. . Quality ID 145: Final reports for procedures using fluoroscopy that document radiation exposure ana jaron, or exposure time and number of fluorographic images (if radiation exposure indices are not avail able) Quality ID #76: The patient was prepped and draped using maximum sterile barrier technique including cap, mask, sterile gown, sterile gloves, a large sterile sheet, hand hygiene, and 2% Chlorhexidine fo r cutaneous antisepsis. When ultrasound is used, sterile ultrasound techniques are followed requiring sterile gel and sterile probes. TECHNICAL DOCUMENTATION: JOB ID: [id number] 2010 [email or web address]- All Rights Reserved rev-03/16 Reading location - IP/workstation name: [email or web address] [id number]
--- NOTE | 2020-01-06 10:47 | RADIOLOGY REPORT (SQ) ---
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 FLUOROSCOPY TIME: 25 SECONDS OF FLUOROSCOPY WAS USED. 1 images saved to PACS. TECHNIQUE: Fluoroscopic and ultrasound guided PICC placement. LIMITATIONS: None. PROCEDURE: After written consent and assessment were obtained, the patient was brought into the fluo roscopy room and placed supine on the table. Ultrasound evaluation of potential access sites were per formed. After successfully identifying a patent left basilic vein, the left arm was prepped and drape d in a sterile fashion along with the ultrasound probe. The entry site was anesthetized with 1% lidoc aga. A 21 gauge 7 cm needle was advanced through the skin and into the basilic vein under live ultra sound guidance. An ultrasound image was saved to PACS confirming access site. A .018 guide wire was then inserted through the needle and into the venous system. The needle was then removed and an 11 b lade scalpel was used to make a 1cm skin incision. A 5 fr peel-away sheath was advanced over the wir e and into the venous system. A measurement was then made using the existing wire and live fluoroscop ic guidance. The wire was then removed and trimmed. The PICC was advanced through the peel-away sheat h and into the venous system. The peel-away sheath was removed and the catheter was adhered to the pa tients arm with a stat lock. The catheter was then aspirated and flushed and a sterile bandage was pl aced over the access site. A fluoroscopic spot image was saved to PACS confirming the catheter tip w ithin the superior vena cava. IMPRESSION: SUCCESSFUL PLACEMENT OF A 5 FR DUAL LUMEN 45 CM PICC IN THE LEFT BASILIC VEIN. COMMENT: Patient medication list reviewed: Yes- Quality ID# [id number]:Eligible professional attests to doc umenting in the medical record they obtained, updated, or reviewed the patient's current medications. . Quality ID 145: Final reports for procedures using fluoroscopy that document radiation exposure ana jaron, or exposure time and number of fluorographic images (if radiation exposure indices are not avail able) Quality ID #76: The patient was prepped and draped using maximum sterile barrier technique including cap, mask, sterile gown, sterile gloves, a large sterile sheet, hand hygiene, and 2% Chlorhexidine fo r cutaneous antisepsis. When ultrasound is used, sterile ultrasound techniques are followed requiring sterile gel and sterile probes. TECHNICAL DOCUMENTATION: JOB ID: [id number] 2010 [employer]- All Rights Reserved rev-03/16 Reading location - IP/workstation name: [email or web address] [id number]
[2020-01-06] MEDS: KETOROLAC TROMETHAMINE INJ/PF 30 MG/1 ML SDV IV PRN ×2 (12:45→20:36)
--- NOTE | 2020-01-06 18:40 | PDOC DISCHARGE SUMMARY ---
Impression - Admit/DC Date/PCP Admission Date/Primary Care Provider: 01/03/20 23:55 GARY BARROW MD Discharge Date: 01/06/20 - Discharge Diagnosis (1) Hypertension Is this a current diagnosis for this admission?: Yes (2) Morbid obesity with BMI of 40.0-44.9, adult Is this a current diagnosis for this admission?: Yes (3) Vertebral osteomyelitis Is this a current diagnosis for this admission?: Yes - Additional Information Resuscitation Status: Full Code Discharge Diet: Cardiac Discharge Activity: Other - light duty at work until his PICC line is removed Referrals: GARY BARROW MD [Primary Care Provider] - Follow up as needed Prescriptions: Ciprofloxacin HCl [Cipro 500 mg Tablet] 500 mg PO BID #84 tablet Chlorthalidone [Hygroton 25 mg Tablet] 25 mg PO DAILY #30 tablet Home Medications: Amlodipine Besylate [Norvasc 10 mg Tablet] 10 mg PO QHS 03/08/13 Losartan Potassium [Cozaar 100 mg Tablet] 100 mg PO QHS 03/08/13 Metoprolol Succinate [Toprol Xl 50 mg Tab.sr] 50 mg PO DAILY 03/08/13 Lorazepam [Ativan 1 mg Tablet] 3 mg PO QHS 03/12/13 Chlorthalidone [Hygroton 25 mg Tablet] 25 mg PO DAILY #30 tablet 01/06/20 Ciprofloxacin HCl [Cipro 500 mg Tablet] 500 mg PO BID #84 tablet 01/06/20 Vancomycin HCl [Vancocin Inj 1000 mg Vial] 1,250 mg IV Q8 vial 01/06/20 History of Present Illiness History of Present Illness: OTIS KARU JR is a 54 year old male with a past medical history of hypertension, obesity and back pain. He has had chronic back pain. Several months ago he received an injection in his hip and facet joint. It was felt that he was a candidate for nerve block and an MRI obtained today revealed osteomyelitis with discitis. The patient has had pain and reports that the pain currently is not more significant than it has been. He denies fever or chills. He denies any dysfunctional bladder or bowel or lower extremity function. The patient is referred to the hospital service for initiation of IV vancomycin therapy, placement of a PICC line and cultures to try and identify the bacteria present. Hospital Course Hospital Course: He got his PICC line and tolerated the procedure well. Cultures never grew anything, so we had to treat empirically. For him this meant vancomycin IV for 6 weeks plus Cipro p.o. for 6 weeks. He will need to be on light duty for work until he gets his PICC line out. His blood pressure was also elevated and we started him on chlorthalidone which did a pretty good job of bringing it down. A prescription was sent to his pharmacy for that medication. His labs and examination were reassuring and he was discharged in stable condition. Physical Exam Vital Signs: Temp Pulse Resp BP Pulse Ox 98.0 F 48 L 12 156/73 H 99 01/06/20 12:00 01/06/20 12:00 01/06/20 12:00 01/06/20 12:00 01/06/20 12:00 Intake & Output 01/05/20 01/06/20 01/07/20 06:59 06:59 06:59 Intake Total 2220 250 Balance 2220 250 Weight 146.8 kg General appearance: PRESENT: no acute distress, cooperative, disheveled, morbidly obese Respiratory exam: PRESENT: clear to auscultation lu, symmetrical, unlabored. ABSENT: accessory muscle use, crackles, prolonged expiratory phas, retraction, rhonchi, tachypnea, wheezes Cardiovascular exam: PRESENT: RRR, +S1, +S2 Pulses: PRESENT: normal carotid pulses Vascular exam: PRESENT: normal capillary refill GI/Abdominal exam: PRESENT: normal bowel sounds, soft. ABSENT: distended, guarding, rebound, tenderness Extremities exam: ABSENT: clubbing, pedal edema Musculoskeletal exam: PRESENT: normal inspection. ABSENT: deformity Neurological exam: PRESENT: alert, awake, oriented to person, oriented to place, oriented to situation Psychiatric exam: PRESENT: appropriate affect, normal mood Skin exam: PRESENT: dry, warm Results Laboratory Results: WBC 7.9 10^3/uL (4.0-10.5) 01/03/20 18:15 RBC 5.23 10^6/uL (4.35-5.55) 01/03/20 18:15 Hgb 17.3 g/dL (13.5-17.0) H 01/03/20 18:15 Hct 49.7 % (37.9-51.0) 01/03/20 18:15 MCV 95 fl (80-97) 01/03/20 18:15 MCH 33.1 pg (27.0-33.4) 01/03/20 18:15 MCHC 34.9 g/dL (32.0-36.0) 01/03/20 18:15 RDW 13.6 % (11.5-14.0) 01/03/20 18:15 Plt Count 183 10^3/uL (150-450) 01/03/20 18:15 Lymph % (Auto) 32.3 % (13-45) 01/03/20 18:15 [place] % (Auto) 12.2 % (3-13) 01/03/20 18:15 Eos % (Auto) 1.6 % (0-6) 01/03/20 18:15 Baso % (Auto) 0.2 % (0-2) 01/03/20 18:15 Absolute Neuts (auto) 4.2 10^3/uL (1.7-8.2) 01/03/20 18:15 Absolute Lymphs (auto) 2.6 10^3/uL (0.5-4.7) 01/03/20 18:15 Absolute Monos (auto) 1.0 10^3/uL (0.1-1.4) 01/03/20 18:15 Absolute Eos (auto) 0.1 10^3/uL (0.0-0.6) 01/03/20 18:15 Absolute Basos (auto) 0.0 10^3/uL (0.0-0.2) 01/03/20 18:15 Seg Neutrophils % 53.7 % (42-78) 01/03/20 18:15 ESR 6 mm/hr (0-20) 01/03/20 22:53 Sodium 140.4 mmol/L (137-145) 01/03/20 18:15 Potassium 4.1 mmol/L (3.6-5.0) 01/03/20 18:15 Chloride 105 mmol/L (98-107) 01/03/20 18:15 Carbon Dioxide 28 mmol/L (22-30) 01/03/20 18:15 Anion Gap 7 (5-19) 01/03/20 18:15 BUN 22 mg/dL (7-20) H 01/03/20 18:15 Creatinine 1.09 mg/dL (0.52-1.25) 01/03/20 18:15 Est GFR ( Amer) > 60 (>60) 01/03/20 18:15 Est GFR (MDRD) Non-Af > 60 (>60) 01/03/20 18:15 Glucose 79 mg/dL (75-110) 01/03/20 18:15 Calcium 9.1 mg/dL (8.4-10.2) 01/03/20 18:15 Total Bilirubin 0.6 mg/dL (0.2-1.3) 01/03/20 18:15 Direct Bilirubin 0.3 mg/dL (0.0-0.4) 01/03/20 18:15 Neonat Total Bilirubin Not Reportable 01/03/20 18:15 Neonat Direct Bilirubin Not Reportable 01/03/20 18:15 Neonat Indirect Bili Not Reportable 01/03/20 18:15 AST 26 U/L (17-59) 01/03/20 18:15 ALT 26 U/L (<50) 01/03/20 18:15 Alkaline Phosphatase 66 U/L (38-126) 01/03/20 18:15 C-Reactive Protein < 5.0 mg/L (<10.0) 01/03/20 18:15 Total Protein 7.5 g/dL (6.3-8.2) 01/03/20 18:15 Albumin 4.3 g/dL (3.5-5.0) 01/03/20 18:15 Time Trough Drawn 0509 01/05/20 05:09 Vancomycin Trough 15.5 ug/mL (5.0-20.0) 01/05/20 05:09 Impressions: Lumbar Spine MRI 01/03/20 17:47 IMPRESSION: 1. Findings consistent with osteomyelitis and discitis at the L2-3 level. Possible early changes of osteomyelitis of the anterior inferior endplate at L1. There is associated mild paraspinal phlegmon. No definitive extension into the epidural space but there is enhancement of the longitudinal ligament posteriorly. There is spinal stenosis at this level. 2. Multilevel degenerative disc disease throughout the lumbar spine resulting in foraminal narrowing and spinal stenosis. THIS REPORT CONTAINS FINDINGS THAT MAY BE CRITICAL TO PATIENT CARE: The findings were verbally discussed via telephone conference with Dr. Harry Enrique MD at 9:13 PM REAL ESTATE OFFICER on 01/03/2020 . Guidance Fluoroscopy 01/06/20 00:00 IMPRESSION: SUCCESSFUL PLACEMENT OF A 5 FR DUAL LUMEN 45 CM PICC IN THE LEFT BASILIC VEIN. Interventional Vascular Procedure 01/06/20 00:00 IMPRESSION: SUCCESSFUL PLACEMENT OF A 5 FR DUAL LUMEN 45 CM PICC IN THE LEFT BASILIC VEIN. PICC Line Insertion 01/06/20 00:00 IMPRESSION: SUCCESSFUL PLACEMENT OF A 5 FR DUAL LUMEN 45 CM PICC IN THE LEFT BASILIC VEIN. Plan Time Spent: Greater than 30 Minutes Stroke Is this a Stroke Patient?: No Acute Heart Failure - Is this a Heart Failure Patient?: No
[2020-01-06] MEDS: LORAZEPAM 1 MG TABLET PO SCH (21:09)
[2020-01-06] MEDS: AMLODIPINE BESYLATE 10 MG TABLET PO SCH (21:09)
[2020-01-07] MEDS ORDERED: NORMAL SALINE 10 ML SDV (AFTER EACH USE) IV PRN (03:00)
[2020-01-07] MEDS: HEPARIN SOD (PORCINE) 5,000 UNIT/ML 1 ML VIAL SUBCUT SCH ×3 (06:07→21:00)
[2020-01-07] MEDS: PANTOPRAZOLE SODIUM 40 MG TABLET.DR PO SCH (06:33)
[2020-01-07] MEDS: VANCOMYCIN HCL 1,250 MG in DEXTROSE 5%-WATER 250 ML IV SCH ×3 (06:33→21:01)
[2020-01-07] MEDS: METOPROLOL SUCCINATE 50 MG TAB.SR.24H PO SCH (09:40)
[2020-01-07] MEDS: VALSARTAN 160 MG TABLET PO SCH (09:40)
[2020-01-07] MEDS: KETOROLAC TROMETHAMINE INJ/PF 30 MG/1 ML SDV IV PRN ×2 (09:41→17:15)
[2020-01-07] MEDS: CHLORTHALIDONE 25 MG TABLET PO SCH (09:41)
[2020-01-07] MEDS: NORMAL SALINE 10 ML SDV (SCHEDULED) IV SCH ×2 (09:41→21:00)
[2020-01-07] MEDS: LORAZEPAM 1 MG TABLET PO SCH (21:00)
[2020-01-07] MEDS: AMLODIPINE BESYLATE 10 MG TABLET PO SCH (21:00)
[2020-01-07 22:20] VITALS: BP 176/78
== END 2020-01-07 22:43 | disposition home health service (06) | DRG 540 ==
LOC: ER 16:55 → EH 23:55 → 4N 01-04 01:40
PROVIDERS: ADMIT Hospitalist; ATTEND Hospitalist
PROC: 02HV33Z Insertion of Infusion Device into Superior Vena Cava, Percutaneous Approach (ICD-10-PCS; principal; 2020-01-06)
PROC: B518ZZA Fluoroscopy of Superior Vena Cava, Guidance (ICD-10-PCS; 2020-01-06)
PROC: B548ZZA Ultrasonography of Superior Vena Cava, Guidance (ICD-10-PCS; 2020-01-06)
DX: M46.26 Osteomyelitis of vertebra, lumbar region (principal); Z68.41 Body mass index [BMI] 40.0-44.9, adult; M46.46 Discitis, unspecified, lumbar region; E66.01 Morbid (severe) obesity due to excess calories; G47.30 Sleep apnea, unspecified; I10 Essential (primary) hypertension; G89.29 Other chronic pain; M54.5 Low back pain; Z79.899 Other long term (current) drug therapy; Z71.3 Dietary counseling and surveillance
CPT/HCPCS: 36415; 36569; 72158; 76937; 77001; 80053; 80202; 82565; 85025; 85652; 86140; 87040; 94660; 96365; 96375; 99284; A9576; J1642; J1644; J1885; J3370; J3490; J7060

== ENCOUNTER → 2020-02-19 | Outpatient (CLI) | payer OTHER ==
--- NOTE | 2020-02-19 17:33 | RADIOLOGY REPORT (SQ) ---
EXAM DESCRIPTION: MRI LUMBAR SPINE WITHOUT IMAGES COMPLETED DATE/TIME: 02/19/2020 4:58 pm REASON FOR STUDY: M46.46 DISCITIS, UNSPECIFIED, LUMBAR REGION M46.46 DISCITIS, UNSPECIFIED, LUMBAR REGION COMPARISON: None. TECHNIQUE: Sagittal and Axial imaging includes T1, T2, STIR and gradient echo sequences. Coronal T2/ HASTE imaging. LIMITATIONS: None. FINDINGS: VISUALIZED UPPER ABDOMEN: Limited evaluation. No acute or suspicious findings suggested. SEGMENTATION: The last lumbar vertebra is referenced as L5. Fully formed S1-S2 disc space suggested . ALIGNMENT: Anatomic. VERTEBRAE: See discussion below. BONE MARROW: See discussion below. DISC SIGNAL: See discussion below. POSTERIOR ELEMENTS: Generally intact. No pars defect evident. HARDWARE: None in the spine CORD AND CONUS: Normal in size and signal intensity. Conus appears to terminate at about the L lappro priate level. SOFT TISSUES: No aortic aneurysm seen. No bulky retroperitoneal adenopathy or mass. No paraspinal mas s or fluid. L1-L2: Decrease in disc height and disc desiccation. Mild prominent anterior osteophytes. Mild bro ad-based disc bulge with slight effacement on the ventral thecal sac with mild spinal canal stenosis. L2-L3: Diffuse low T1 signal intensity involves the L2 and L3 vertebrae on the T1 images. On the T2 images, the vertebral bodies demonstrate increased diffuse signal intensity within the L2 and L3 adriana tebrae. The disc space is markedly decreased with heterogenous signal intensity within the disc and cortical irregularity of the inferior endplate of L1 and the superior endplate of L2. Considerations for these findings include discitis/osteomyelitis. No evidence of epidural abscess. No evidence fo r significant retropulsion into the spinal canal. -L2. L3-L4: Disc desiccation. Mild hypertrophic facet arthrosis with some fluid in the right facet joint . Mild bilateral ligamentum flavum thickening. Mild to moderate spinal stenosis. Mild exit foramin al stenosis. L4-L5: Mild disc desiccation. Hypertrophic facet arthrosis. Mild to moderate exit foraminal stenos is bilaterally. No significant spinal stenosis. L5-S1: Fairly extensive hypertrophic facet arthrosis, slightly more so on the left. Mild to moderat e bilateral exit foraminal stenosis. No significant spinal stenosis. LOWER THORACIC: Incompletely imaged. No stenosis seen. SACRUM: Visualized upper sacrum intact. OTHER: A low attenuated lesion in the right kidney on the T2 images. Right renal cyst is noted. IMPRESSION: 1. The constellation of findings as described above at L2-L3 suggest discitis/osteomyel itis. No evidence of epidural abscess. No evidence of retropulsion into the spinal canal. Correlat ion suggested. 2. At L2-L3, mild broad-based disc bulge with right paracentral-foraminal disc protrusion resulting in mild foraminal narrowing. Mild to moderate central canal stenosis. 3. At L3-L4, mild hypertrophic the set arthrosis and mild ligamentum flavum thickening results in mi ld to moderate central spinal stenosis. 4. Fairly extensive hypertrophic facet arthrosis at L4-5 and L5-S1. Mild to moderate exit foraminal stenosis bilaterally. 5. At L1-L2, degenerative changes. Mild broad-based disc bulge. 6. Right renal cyst. A low attenuated lesion is also noted in the left kidney on the T2 images. Fur ther evaluation with renal ultrasound suggested. TECHNICAL DOCUMENTATION: JOB ID: [id number] 2010 [employer]- All Rights Reserved Reading location - IP/workstation name: [email or web address]
== END ==
LOC: RAD 16:10
PROVIDERS: ATTEND Family Medicine
DX: M46.46 Discitis, unspecified, lumbar region (principal)
CPT/HCPCS: 72148